=== PATIENT | male | born 1985 | race Two or more races ===

== ENCOUNTER 2020-03-14 11:05 | Emergency (ER) | payer MEDICAID ==
[~2020-03-14] VITALS: Ht 185.4 cm; Wt 104.5 kg
[2020-03-14] MEDS ORDERED: METHOCARBAMOL 500 MG TABLET PO ONE (12:30)
[2020-03-14] MEDS ORDERED: KETOROLAC TROMETHAMINE 10 MG TABLET PO ONE (12:30)
[2020-03-14 12:36] VITALS: BP 117/79
== END 2020-03-14 12:44 | disposition home or self-care (01) ==
LOC: EMS 11:18
DX: S13.4XXA Sprain of ligaments of cervical spine, initial encounter (principal); S39.012A Strain of muscle, fascia and tendon of lower back, initial encounter; F17.210 Nicotine dependence, cigarettes, uncomplicated; V49.9XXA Car occupant (driver) (passenger) injured in unspecified traffic accident, initial encounter; Y93.89 Activity, other specified; Y92.89 Other specified places as the place of occurrence of the external cause; Y99.8 Other external cause status
CPT/HCPCS: 99283

== ENCOUNTER 2022-01-26 17:57 | Emergency (ER) | payer MEDICAID ==
[~2022-01-26] VITALS: Ht 185.4 cm; Wt 120.5 kg
[2022-01-26] MEDS ORDERED: KETOROLAC TROMETHAMINE 30 MG/ML VIAL IM ONE (22:15)
[2022-01-26] MEDS ORDERED: CYCL-448 PO (22:56)
[2022-01-26 23:04] VITALS: BP 128/74
== END 2022-01-26 23:18 | disposition home or self-care (01) ==
LOC: EMS 18:16
DX: S39.012A Strain of muscle, fascia and tendon of lower back, initial encounter (principal); S80.02XA Contusion of left knee, initial encounter; F17.210 Nicotine dependence, cigarettes, uncomplicated; W01.0XXA Fall on same level from slipping, tripping and stumbling without subsequent striking against object, initial encounter; Z91.81 History of falling; Y93.89 Activity, other specified; Y92.59 Other trade areas as the place of occurrence of the external cause; Y99.8 Other external cause status
CPT/HCPCS: 99284; 72100; 73562; 96372; J1885